=== PATIENT | male | born 1995 | race Caucasian/White ===

== ENCOUNTER 2017-07-16 15:14 | Inpatient (IN) | payer MEDICAID ==
[~2017-07-16] VITALS: Ht 180.3 cm; Wt 102.0 kg
[~2017-07-16 15:14] MED LIST: HYD50 PO; LURA80 PO
[2017-07-16] MEDS ORDERED: RISPC25 IM (15:19)
[2017-07-16 16:02] LABS: BASOPHILS # (AUTO) 0.04 K/uL (0.00-0.20); BASOPHILS % (AUTO) 0.6 % (0.0-2.0); EOSINOPHILS # (AUTO) 0.22 K/uL (0.00-0.70); EOSINOPHILS % (AUTO) 3.27 % (1.0-6.0); HEMATOCRIT 42.1 % (41-53); HEMOGLOBIN 14.5 g/dL (13.5-17.5); LYMPHOCYTES % (AUTO) 30.1 % (22.0-44.0); MEAN CORPUSCULAR HEMOGLOBIN 30.6 pg (26.0-34.0); MEAN CORPUSCULAR HGB CONC 34.4 G/dL (31.0-37.0); MEAN CORPUSCULAR VOLUME 89 fL (80-100); MONOCYTES # (AUTO) 0.8 K/uL (0.1-1.0); MONOCYTES % (AUTO) 11.3 % (2.0-9.0); NEUTROPHILS # (AUTO) 3.6 K/uL (1.8-7.7); NEUTROPHILS % (AUTO) 54.6 % (40.0-70.0); PLATELET COUNT (AUTO) 220 K/uL (150-450); RED BLOOD CELL COUNT(AUTO) 4.74 MIL/uL (4.50-5.90); RED CELL DISTRIBUTION WIDTH 14.4 % (11.5-14.5); WHITE BLOOD COUNT (AUTO) 6.6 K/uL (4.5-11.0)
[2017-07-16 16:45] LABS: ANION GAP 9 mmol/L (8-16); CALCIUM, TOTAL 8.6 mg/dL (8.8-10.5); CARBON DIOXIDE 27 mmol/L (22-29); CHLORIDE 102 mmol/L (98-107); CREATININE 0.95 mg/dL (0.60-1.30); GLOMERULAR FILTR. RATE CALC > 60 mL/min (>60); SODIUM SERUM 138 mmol/L (136-145); UREA NITROGEN, BLOOD 19 mg/dL (7-18)
[2017-07-16 16:56] LABS: ALANINE AMINOTRANSFERASE 41 U/L (12-78); ALBUMIN 3.8 g/dL (3.4-5.0); ASPARTATE AMINOTRANSFERASE 28 U/L (15-37); BILIRUBIN,TOTAL 0.4 mg/dL (0.1-1.0); TOTAL PROTEIN, SERUM 7.5 g/dL (6.4-8.2)
[2017-07-16] MEDS ORDERED: LORazepam 1 MG TABLET PO ONE (18:45)
[2017-07-16] MEDS ORDERED: HALOPERIDOL 5 MG TABLET PO ONE (18:45)
[2017-07-16] MEDS ORDERED: ZOLPIDEM TARTRATE 10 MG TABLET PO PRN (21:00)
[2017-07-16] MEDS ORDERED: HALOPERIDOL 5 MG TABLET PO PRN (21:00)
[2017-07-17 01:23] VITALS: BP 124/76
[2017-07-17 08:00] VITALS: BP 123/71
[2017-07-17 08:55] LABS: CHOL/HDL RATIO 4.5 (4.2-7.3)
[2017-07-17] MEDS: LORazepam 2 MG TABLET PO PRN ×2 (09:04→21:07)
[2017-07-17] MEDS: NICOTINE 21 MG/24 HOUR PATCH TD SCH (09:05)
[2017-07-17 16:00] VITALS: BP 124/89
[2017-07-17] MEDS ORDERED: IBUPROFEN 400 MG TABLET PO PRN (17:00)
[2017-07-17] MEDS ORDERED: ACETAMINOPHEN 325 MG TABLET PO PRN (17:00)
[2017-07-17] MEDS: HALOPERIDOL 5 MG TABLET PO SCH (21:07)
[2017-07-18 06:23] VITALS: BP 122/82
[2017-07-18 08:42] VITALS: BP 123/65
[2017-07-18] MEDS: NICOTINE 21 MG/24 HOUR PATCH TD SCH (08:58)
[2017-07-18] MEDS: HALOPERIDOL 5 MG TABLET PO SCH ×2 (08:58→17:03)
[2017-07-18] MEDS: LORazepam 2 MG TABLET PO PRN ×2 (08:58→17:03)
[2017-07-18 16:00] VITALS: BP 132/72
[2017-07-19 06:46] VITALS: BP 121/76
[2017-07-19 08:39] VITALS: BP 125/66
[2017-07-19] MEDS: HALOPERIDOL 10 MG TABLET PO SCH ×2 (09:37→16:47)
[2017-07-19] MEDS: NICOTINE 21 MG/24 HOUR PATCH TD SCH (09:37)
[2017-07-19] MEDS: LORazepam 2 MG TABLET PO PRN ×2 (09:37→16:47)
[2017-07-19 16:31] VITALS: BP 128/68
[2017-07-19] MEDS: BENZTROPINE MESYLATE 1 MG TABLET PO SCH (16:46)
[2017-07-20 06:39] VITALS: BP 115/62
[2017-07-20] MEDS: NICOTINE 21 MG/24 HOUR PATCH TD SCH (09:37)
[2017-07-20] MEDS: HALOPERIDOL 10 MG TABLET PO SCH ×2 (09:37→16:37)
[2017-07-20 09:41] VITALS: BP 121/68
[2017-07-20] MEDS: BENZTROPINE MESYLATE 1 MG TABLET PO SCH ×2 (09:41→16:37)
[2017-07-20 16:23] VITALS: BP 127/71
[2017-07-20] MEDS: LORazepam 2 MG TABLET PO PRN (16:37)
[2017-07-21 06:24] VITALS: BP 122/75
[2017-07-21 08:36] VITALS: BP 119/62
[2017-07-21] MEDS: HALOPERIDOL 10 MG TABLET PO SCH ×2 (08:56→16:54)
[2017-07-21] MEDS: BENZTROPINE MESYLATE 1 MG TABLET PO SCH ×2 (08:56→16:54)
[2017-07-21] MEDS: LORazepam 2 MG TABLET PO PRN ×2 (08:56→16:54)
[2017-07-21] MEDS: NICOTINE 21 MG/24 HOUR PATCH TD SCH (08:56)
[2017-07-21 16:12] VITALS: BP 110/65
[2017-07-22 05:56] VITALS: BP 115/65
[2017-07-22 08:46] VITALS: BP 125/64
[2017-07-22] MEDS ORDERED: HALOPERIDOL DECANOATE 100 MG/ML VIAL IM ONE (09:00)
[2017-07-22] MEDS: BENZTROPINE MESYLATE 1 MG TABLET PO SCH ×2 (09:28→16:08)
[2017-07-22] MEDS: HALOPERIDOL 10 MG TABLET PO SCH ×2 (09:28→16:08)
[2017-07-22] MEDS: NICOTINE 21 MG/24 HOUR PATCH TD SCH (09:28)
[2017-07-22] MEDS: LORazepam 2 MG TABLET PO PRN ×2 (09:28→16:08)
[2017-07-22 16:00] VITALS: BP 127/71
[2017-07-23 06:53] VITALS: BP 116/63
[2017-07-23 08:22] VITALS: BP 105/64
[2017-07-23] MEDS: HALOPERIDOL 10 MG TABLET PO SCH ×2 (08:41→16:29)
[2017-07-23] MEDS: LORazepam 2 MG TABLET PO PRN ×2 (08:41→16:30)
[2017-07-23] MEDS: BENZTROPINE MESYLATE 1 MG TABLET PO SCH ×2 (08:41→16:29)
[2017-07-23] MEDS: NICOTINE 21 MG/24 HOUR PATCH TD SCH (08:42)
[2017-07-23] MEDS ORDERED: BENZ1TAB10 PO (16:36)
[2017-07-23] MEDS ORDERED: HALO10 PO (16:37)
== END 2017-07-23 17:00 | disposition home or self-care (01) | DRG 750 ==
LOC: EMS 15:15 → B3A 21:30 → AHU 21:30
PROVIDERS: ADMIT Psychiatry & Neurology Psychiatry; ATTEND Psychiatry & Neurology Psychiatry
DX: F20.0 Paranoid schizophrenia (principal); E78.5 Hyperlipidemia, unspecified; F17.200 Nicotine dependence, unspecified, uncomplicated; R00.0 Tachycardia, unspecified; Z71.6 Tobacco abuse counseling
CPT/HCPCS: 84443; 99285; G0480; J1631

== ENCOUNTER 2020-04-17 08:04 | Inpatient (IN) | payer MEDICAID, OTHER ==
[~2020-04-17] VITALS: Ht 180.3 cm; Wt 131.3 kg
[~2020-04-17 08:04] MED LIST changes: +BENZ1TAB10 PO; +BUSP10TA23 PO; +FLUD25I SQ; -HYD50 PO; -LURA80 PO; +PALI234D IM
[2020-04-17 09:09] LABS: BASOPHILS % (AUTO) 0.8 % (0.0-2.0); EOSINOPHILS % (AUTO) 0.3 % (1.0-6.0); HEMATOCRIT 42.1 % (41-53); HEMOGLOBIN 14.6 g/dL (13.5-17.5); LYMPHOCYTES # (AUTO) 1.2 K/uL (1.0-4.8); LYMPHOCYTES % (AUTO) 10.9 % (22.0-44.0); MEAN CORPUSCULAR HEMOGLOBIN 30.2 pg (26.0-34.0); MEAN CORPUSCULAR HGB CONC 34.7 G/dL (31.0-37.0); MEAN CORPUSCULAR VOLUME 87 fL (80-100); MONOCYTES # (AUTO) 1.1 K/uL (0.1-1.0); NEUTROPHILS # (AUTO) 8.8 K/uL (1.8-7.7); PLATELET COUNT (AUTO) 269 K/uL (150-450); RED BLOOD CELL COUNT(AUTO) 4.82 MIL/uL (4.50-5.90); RED CELL DISTRIBUTION WIDTH 13.7 % (11.5-14.5)
[2020-04-17 09:21] LABS: ANION GAP 10 mmol/L (8-16); CALCIUM, TOTAL 9.2 mg/dL (8.8-10.5); CARBON DIOXIDE 28 mmol/L (22-29); CHLORIDE 103 mmol/L (98-107); GLOMERULAR FILTR. RATE CALC > 60 mL/min (>60); GLUCOSE,RANDOM 109 mg/dL (70-110); POTASSIUM 3.9 mmol/L (3.5-5.1); SODIUM SERUM 141 mmol/L (136-145); UREA NITROGEN, BLOOD 14 mg/dL (7-18)
[2020-04-17 09:27] LABS: ALANINE AMINOTRANSFERASE 44 U/L (12-78); ALKALINE PHOSPHATASE 113 U/L (46-116); ASPARTATE AMINOTRANSFERASE 38 U/L (15-37); BILIRUBIN,TOTAL 0.7 mg/dL (0.1-1.0); TOTAL PROTEIN, SERUM 8.2 g/dL (6.4-8.2)
[2020-04-17 10:52] LABS: AMPHET/METH SCREEN,URINE POSITIVE (NEGATIVE); BARBITURATE SCREEN, URINE NEGATIVE (NEGATIVE); BENZODIAZEPINES SCREEN,URINE NEGATIVE (NEGATIVE); CANNABINOID SCREEN,URINE NEGATIVE (NEGATIVE); COCAINE SCREEN,URINE NEGATIVE (NEGATIVE); METHADONE SCREEN, URINE NEGATIVE (NEGATIVE); OPIATE SCREEN,URINE NEGATIVE (NEGATIVE)
[2020-04-17 10:58] LABS: PHENCYCLIDINE SCREEN,URINE NEGATIVE (NEGATIVE)
[2020-04-17] MEDS: LORazepam 2 MG TABLET PO PRN (12:55)
[2020-04-17] MEDS: HALOPERIDOL 5 MG TABLET PO PRN (12:55)
[2020-04-17] MEDS ORDERED: PNEUMOCOCCAL VACCINE POLYVALENT 0.5 ML VIAL [PPSV23] IM ONE (14:30)
[2020-04-17 14:40] VITALS: BP 134/85
[2020-04-17 16:10] VITALS: BP 130/78
[2020-04-18 03:24] VITALS: BP 111/77
[2020-04-18] MEDS: HALOPERIDOL 5 MG TABLET PO PRN (05:20)
[2020-04-18] MEDS: LORazepam 2 MG TABLET PO PRN (05:20)
[2020-04-18 07:33] LABS: BASOPHILS % (AUTO) 0.7 % (0.0-2.0); EOSINOPHILS % (AUTO) 2.7 % (1.0-6.0); HEMATOCRIT 39.3 % (41-53); HEMOGLOBIN 13.4 g/dL (13.5-17.5); LYMPHOCYTES # (AUTO) 1.5 K/uL (1.0-4.8); LYMPHOCYTES % (AUTO) 20.5 % (22.0-44.0); MEAN CORPUSCULAR HEMOGLOBIN 29.6 pg (26.0-34.0); MEAN CORPUSCULAR HGB CONC 34.1 G/dL (31.0-37.0); MEAN CORPUSCULAR VOLUME 87 fL (80-100); MONOCYTES # (AUTO) 0.9 K/uL (0.1-1.0); MONOCYTES % (AUTO) 11.5 % (2.0-9.0); NEUTROPHILS # (AUTO) 4.8 K/uL (1.8-7.7); NEUTROPHILS % (AUTO) 64.6 % (40.0-70.0); PLATELET COUNT (AUTO) 221 K/uL (150-450); RED BLOOD CELL COUNT(AUTO) 4.52 MIL/uL (4.50-5.90); RED CELL DISTRIBUTION WIDTH 13.6 % (11.5-14.5)
[2020-04-18 07:49] LABS: ALANINE AMINOTRANSFERASE 39 U/L (12-78); ALBUMIN 3.4 g/dL (3.4-5.0); ALKALINE PHOSPHATASE 100 U/L (46-116); ANION GAP 8 mmol/L (8-16); ASPARTATE AMINOTRANSFERASE 41 U/L (15-37); BILIRUBIN,TOTAL 0.3 mg/dL (0.1-1.0); CALCIUM, TOTAL 8.5 mg/dL (8.8-10.5); CARBON DIOXIDE 30 mmol/L (22-29); CHLORIDE 101 mmol/L (98-107); CREATININE 0.95 mg/dL (0.60-1.30); FREE T4 (FREE THYROXINE) 1.02 ng/dL (0.76-1.46); GLOMERULAR FILTR. RATE CALC > 60 mL/min (>60); GLUCOSE,RANDOM 80 mg/dL (70-110); SODIUM SERUM 139 mmol/L (136-145); TOTAL PROTEIN, SERUM 6.7 g/dL (6.4-8.2); UREA NITROGEN, BLOOD 13 mg/dL (7-18)
[2020-04-18 08:12] VITALS: BP 92/56
[2020-04-18] MEDS: HALOPERIDOL 5 MG TABLET PO SCH ×2 (08:31→17:17)
[2020-04-18] MEDS: DIVALPROEX SODIUM 500 MG ER TABLET PO SCH (08:31)
[2020-04-18] MEDS ORDERED: BENZOCAINE/MENTHOL LOZENGE MM PRN (08:45)
[2020-04-18] MEDS ORDERED: ALBUTEROL SULFATE HFA 90 MCG/PUFF 8 GM INHALER IH PRN (08:45)
[2020-04-18] MEDS ORDERED: BACITRACIN 28.4 GM OINTMENT TP PRN (08:45)
[2020-04-18] MEDS ORDERED: CloNIDine HCL 0.1 MG TABLET PO PRN (08:45)
[2020-04-18] MEDS ORDERED: PETROLATUM,WHITE 28 GM JELLY TP PRN (08:45)
[2020-04-18] MEDS ORDERED: MAGNESIUM HYDROXIDE SUSPENSION 30 ML UDCUP PO PRN (08:45)
[2020-04-18] MEDS ORDERED: IBUPROFEN 600 MG TABLET PO PRN (08:45)
[2020-04-18] MEDS ORDERED: OMEPRAZOLE 20 MG CAPSULE PO PRN (08:45)
[2020-04-18] MEDS ORDERED: DOCUSATE SODIUM 100 MG CAPSULE PO PRN (08:45)
[2020-04-18] MEDS ORDERED: ONDANSETRON HCL 4 MG TABLET PO PRN (08:45)
[2020-04-18] MEDS ORDERED: ACETAMINOPHEN 325 MG TABLET PO PRN (08:45)
[2020-04-18] MEDS ORDERED: LOPERAMIDE HCL 2 MG CAPSULE PO PRN (08:45)
[2020-04-18] MEDS ORDERED: MAG HYDROX/AL HYDROX/SIMETH ES 30 ML SUSPENSION UDCUP PO PRN (08:45)
[2020-04-18] MEDS: OMEGA-3/DHA/EPA/FISH OIL 1,000 MG CAPSULE PO SCH (09:25)
[2020-04-18] MEDS: NICOTINE 14 MG/24 HOUR PATCH TD SCH (12:45)
[2020-04-18 16:02] VITALS: BP 128/77
[2020-04-18] MEDS: SIMVASTATIN 10 MG TABLET PO SCH (21:55)
[2020-04-19 05:37] VITALS: BP 109/69
[2020-04-19] MEDS: DIVALPROEX SODIUM 500 MG ER TABLET PO SCH (08:09)
[2020-04-19] MEDS: HALOPERIDOL 5 MG TABLET PO SCH ×2 (08:10→16:14)
[2020-04-19] MEDS: OMEGA-3/DHA/EPA/FISH OIL 1,000 MG CAPSULE PO SCH (08:10)
[2020-04-19] MEDS: NICOTINE 14 MG/24 HOUR PATCH TD SCH (08:10)
[2020-04-19 08:18] VITALS: BP 111/72
[2020-04-19 16:02] VITALS: BP 133/73
[2020-04-19] MEDS: LORazepam 2 MG TABLET PO PRN ×2 (16:14→20:26)
[2020-04-19] MEDS: SIMVASTATIN 10 MG TABLET PO SCH (20:26)
[2020-04-20 05:30] VITALS: BP 118/68
[2020-04-20 08:09] VITALS: BP 137/77
[2020-04-20] MEDS: DIVALPROEX SODIUM 500 MG ER TABLET PO SCH ×2 (08:22→20:30)
[2020-04-20] MEDS: HALOPERIDOL 5 MG TABLET PO SCH (08:22)
[2020-04-20] MEDS: OMEGA-3/DHA/EPA/FISH OIL 1,000 MG CAPSULE PO SCH (08:23)
[2020-04-20] MEDS: NICOTINE 14 MG/24 HOUR PATCH TD SCH (09:22)
[2020-04-20] MEDS ORDERED: GuaiFENesin/D-METHORPHAN [SUGAR-FREE] 200-20MG/10 ML SYRUP UDCUP PO PRN (14:15)
[2020-04-20] MEDS ORDERED: OLANZapine 5 MG RAPDIS TABLET PO PRN (14:15)
[2020-04-20] MEDS ORDERED: HydrOXYzine PAMOATE 50 MG CAPSULE PO PRN (14:15)
[2020-04-20 16:02] VITALS: BP 117/60
[2020-04-20] MEDS: LORazepam 2 MG TABLET PO PRN (16:04)
[2020-04-20] MEDS: THIAMINE 100 MG TABLET PO SCH (16:04)
[2020-04-20] MEDS: SIMVASTATIN 10 MG TABLET PO SCH (20:30)
[2020-04-20] MEDS: ZOLPIDEM TARTRATE 10 MG TABLET PO PRN (20:30)
[2020-04-20] MEDS ORDERED: OLANZapine 5 MG RAPDIS TABLET PO SCH (21:00)
[2020-04-21 06:06] VITALS: BP 119/65
[2020-04-21 08:03] VITALS: BP 118/59
[2020-04-21] MEDS: THIAMINE 100 MG TABLET PO SCH ×2 (08:31→16:32)
[2020-04-21] MEDS: NALTREXONE HCL 50 MG TABLET PO SCH (08:31)
[2020-04-21] MEDS: OMEGA-3/DHA/EPA/FISH OIL 1,000 MG CAPSULE PO SCH (08:31)
[2020-04-21] MEDS: MULTIVITAMINS WITH MINERALS, THERAPEUTIC TABLET PO SCH (08:32)
[2020-04-21] MEDS: FOLIC ACID 1 MG TABLET PO SCH (08:32)
[2020-04-21] MEDS: NICOTINE 14 MG/24 HOUR PATCH TD SCH (08:37)
[2020-04-21] MEDS: LORazepam 2 MG TABLET PO PRN (16:32)
[2020-04-21 17:33] VITALS: BP 135/82
[2020-04-21] MEDS: OLANZapine 10 MG RAPDIS TABLET PO SCH (20:28)
[2020-04-21] MEDS: SIMVASTATIN 10 MG TABLET PO SCH (20:28)
[2020-04-21] MEDS: DIVALPROEX SODIUM 500 MG ER TABLET PO SCH (20:28)
[2020-04-21] MEDS: ZOLPIDEM TARTRATE 10 MG TABLET PO PRN (20:28)
[2020-04-22 06:09] VITALS: BP 126/77
[2020-04-22] MEDS: THIAMINE 100 MG TABLET PO SCH ×2 (08:38→16:04)
[2020-04-22] MEDS: NALTREXONE HCL 50 MG TABLET PO SCH (08:38)
[2020-04-22] MEDS: MULTIVITAMINS WITH MINERALS, THERAPEUTIC TABLET PO SCH (08:38)
[2020-04-22] MEDS: FOLIC ACID 1 MG TABLET PO SCH (08:38)
[2020-04-22] MEDS: OMEGA-3/DHA/EPA/FISH OIL 1,000 MG CAPSULE PO SCH (08:38)
[2020-04-22] MEDS: NICOTINE 14 MG/24 HOUR PATCH TD SCH (08:39)
[2020-04-22 16:05] VITALS: BP 145/92
[2020-04-22] MEDS: OLANZapine 10 MG RAPDIS TABLET PO SCH (20:29)
[2020-04-22] MEDS: ZOLPIDEM TARTRATE 10 MG TABLET PO PRN (20:29)
[2020-04-22] MEDS: DIVALPROEX SODIUM 500 MG ER TABLET PO SCH (20:29)
[2020-04-22] MEDS: SIMVASTATIN 10 MG TABLET PO SCH (20:39)
[2020-04-23 05:40] VITALS: BP 138/86
[2020-04-23] MEDS: THIAMINE 100 MG TABLET PO SCH ×2 (08:32→17:03)
[2020-04-23] MEDS: NALTREXONE HCL 50 MG TABLET PO SCH (08:33)
[2020-04-23] MEDS: NICOTINE 14 MG/24 HOUR PATCH TD SCH (08:33)
[2020-04-23] MEDS: MULTIVITAMINS WITH MINERALS, THERAPEUTIC TABLET PO SCH (08:33)
[2020-04-23] MEDS: OMEGA-3/DHA/EPA/FISH OIL 1,000 MG CAPSULE PO SCH (08:33)
[2020-04-23] MEDS: FOLIC ACID 1 MG TABLET PO SCH (08:33)
[2020-04-23 08:59] VITALS: BP 132/83
[2020-04-23 16:02] VITALS: BP 140/93
[2020-04-23] MEDS: OLANZapine 10 MG RAPDIS TABLET PO SCH (20:57)
[2020-04-23] MEDS: DIVALPROEX SODIUM 500 MG ER TABLET PO SCH (20:57)
[2020-04-23] MEDS: LORazepam 2 MG TABLET PO PRN (20:57)
[2020-04-23] MEDS: SIMVASTATIN 10 MG TABLET PO SCH (20:57)
[2020-04-24 05:11] VITALS: BP 136/84
[2020-04-24] MEDS: NALTREXONE HCL 50 MG TABLET PO SCH (08:06)
[2020-04-24] MEDS: OMEGA-3/DHA/EPA/FISH OIL 1,000 MG CAPSULE PO SCH (08:06)
[2020-04-24] MEDS: THIAMINE 100 MG TABLET PO SCH (08:06)
[2020-04-24] MEDS: FOLIC ACID 1 MG TABLET PO SCH (08:06)
[2020-04-24] MEDS: MULTIVITAMINS WITH MINERALS, THERAPEUTIC TABLET PO SCH (08:06)
[2020-04-24] MEDS: NICOTINE 14 MG/24 HOUR PATCH TD SCH (08:06)
[2020-04-24 08:15] VITALS: BP 121/66
[2020-04-24] MEDS ORDERED: NALT50TA PO (09:58)
[2020-04-24] MEDS ORDERED: DIVA-80 PO (09:58)
[2020-04-24] MEDS ORDERED: OLAN10TA22 PO (09:58)
[2020-04-24] MEDS ORDERED: OMEP20 PO (09:58)
[2020-04-24] MEDS ORDERED: SIMV-259 PO (10:21)
== END 2020-04-24 13:10 | disposition home or self-care (01) | DRG 885 ==
LOC: EMS 08:08 → B3A 14:02
PROVIDERS: ADMIT Psychiatry & Neurology Psychiatry; ATTEND Psychiatry & Neurology Psychiatry
DX: F20.0 Paranoid schizophrenia (principal); Z68.41 Body mass index [BMI] 40.0-44.9, adult; E66.9 Obesity, unspecified; E78.5 Hyperlipidemia, unspecified; K59.00 Constipation, unspecified; F41.9 Anxiety disorder, unspecified; Z91.14 Patient's other noncompliance with medication regimen
CPT/HCPCS: 84436; 84439; 93005; G0480

== ENCOUNTER 2021-11-30 20:43 | Emergency (ER) | payer MEDICAID ==
[~2021-11-30] VITALS: Ht 182.9 cm; Wt 145.0 kg
[~2021-11-30 20:43] MED LIST changes: -BENZ1TAB10 PO; -BUSP10TA23 PO; +DIVA-80 PO; -FLUD25I SQ; +NALT50TA PO; +OLAN10TA22 PO; +OMEP20 PO; -PALI234D IM; +SIMV-259 PO
[2021-11-30] MEDS ORDERED: TOPI25 PO (21:23)
[2021-11-30] MEDS ORDERED: BENZ1TAB10 PO (21:23)
[2021-11-30] MEDS ORDERED: HALO5TAB2 PO ×2 (21:23)
[2021-11-30] MEDS ORDERED: NICO-803 TD (21:23)
[2021-11-30] MEDS ORDERED: SERT-162 PO (21:23)
[2021-11-30 21:26] LABS: BASOPHILS % (AUTO) 0.7 % (0.0-2.0); EOSINOPHILS % (AUTO) 5.5 % (1.0-6.0); HEMATOCRIT 41.7 % (41-53); HEMOGLOBIN 13.9 g/dL (13.5-17.5); LYMPHOCYTES # (AUTO) 2.3 K/uL (1.0-4.8); LYMPHOCYTES % (AUTO) 18.1 % (22.0-44.0); MEAN CORPUSCULAR HEMOGLOBIN 28.5 pg (26.0-34.0); MEAN CORPUSCULAR HGB CONC 33.3 G/dL (31.0-37.0); MEAN CORPUSCULAR VOLUME 86 fL (80-100); MONOCYTES # (AUTO) 1.1 K/uL (0.1-1.0); MONOCYTES % (AUTO) 8.6 % (2.0-9.0); NEUTROPHILS # (AUTO) 8.5 K/uL (1.8-7.7); NEUTROPHILS % (AUTO) 67.1 % (40.0-70.0); PLATELET COUNT (AUTO) 249 K/uL (150-450); RED BLOOD CELL COUNT(AUTO) 4.87 MIL/uL (4.50-5.90); RED CELL DISTRIBUTION WIDTH 13.5 % (11.5-14.5)
[2021-11-30 21:29] LABS: COVID AG,FIA SOURCE NASAL SWAB
[2021-11-30 21:33] LABS: ANION GAP 12 mmol/L (8-16); CALCIUM, TOTAL 8.8 mg/dL (8.8-10.5); CARBON DIOXIDE 26 mmol/L (22-29); CHLORIDE 100 mmol/L (98-107); CREATININE 0.89 mg/dL (0.60-1.30); GLOMERULAR FILTR. RATE CALC > 60 mL/min (>60); GLUCOSE,RANDOM 87 mg/dL (70-110); POTASSIUM 3.9 mmol/L (3.5-5.1); SODIUM SERUM 138 mmol/L (136-145); UREA NITROGEN, BLOOD 13 mg/dL (7-18)
[2021-11-30 21:39] LABS: ALANINE AMINOTRANSFERASE 32 U/L (12-78); ALBUMIN 3.5 g/dL (3.4-5.0); ALKALINE PHOSPHATASE 108 U/L (46-116); ASPARTATE AMINOTRANSFERASE 19 U/L (15-37); BILIRUBIN,TOTAL 0.1 mg/dL (0.1-1.0); TOTAL PROTEIN, SERUM 7.5 g/dL (6.4-8.2)
[2021-11-30 23:09] LABS: AMPHET/METH SCREEN,URINE NEGATIVE (NEGATIVE); BARBITURATE SCREEN, URINE NEGATIVE (NEGATIVE); BENZODIAZEPINES SCREEN,URINE NEGATIVE (NEGATIVE); CANNABINOID SCREEN,URINE NEGATIVE (NEGATIVE); COCAINE SCREEN,URINE NEGATIVE (NEGATIVE); METHADONE SCREEN, URINE NEGATIVE (NEGATIVE); OPIATE SCREEN,URINE NEGATIVE (NEGATIVE)
[2021-11-30 23:10] LABS: PHENCYCLIDINE SCREEN,URINE NEGATIVE (NEGATIVE)
[2021-11-30 23:27] VITALS: BP 119/57
== END 2021-11-30 23:30 | disposition home or self-care (01) ==
LOC: EMS 20:56
DX: F20.9 Schizophrenia, unspecified (principal); F15.90 Other stimulant use, unspecified, uncomplicated; Z79.899 Other long term (current) drug therapy; Z20.822 Contact with and (suspected) exposure to COVID-19
CPT/HCPCS: 36415; 80053; 80307; 85025; 87426; 99284; G0480